=== PATIENT | male | born 1985 | race African-American/Black ===

== ENCOUNTER 2018-08-29 15:22 | Emergency (ER) | payer OTHER ==
[2018-08-29 15:28] VITALS: BP 132/89; PULSE 87; TEMP 98.2; BMI 22.8
--- NOTE | 2018-08-29 15:43 | PDOC ---
Suture Removal/Wound Check HPI - History of Present Illness Chief Complaint: Suture/Staple Removal(Here) Stated Complaint: LT SHOULDER PAIN/STITCHES REMOVAL Time Seen by Provider: 08/29/18 15:33 History Source: Yes: Patient Exam Limitations: Yes: No Limitations - Previous ED Treatment Type of procedure performed on last visit: Yes: Laceration Repair Tetanus Immunization: Yes: Up to Date - Onset of Previous Treatment Timing/Duration/Severity of Onset: reports: Prior to presentation Past History - Travel Traveled outside of the country in the last 30 days: No Close contact w/someone who was outside of country & ill: No - Past Medical History Allergies/Adverse Reactions: Allergies Allergy/AdvReac Type Severity Reaction Status Date / Time No Known Allergies Allergy Verified 09/27/13 19:59 Home Medications: Ambulatory Orders NK [No Known Home Medication] 08/29/18 COPD: No - Immunization History Immunization Up to Date: Yes - Suicide/Smoking/Psychosocial Hx Smoking History: Never smoked If you are a former smoker, when did you quit?: 5 years ago Hx Alcohol Use: No Drug/Substance Use Hx: Yes (MARIJUANA) Suture Removal/Wound Check PE - Physical Exam Laceration/Wound Check Symptoms: reports: None Current Severity Level: None Maximum Severity Level: None Location of Laceration/Wound: left: Head Pain Radiation: None *Review of Systems - Review of Systems Constitutional: No: Chills, Fever HEENTM: No: Ear Pain, Nose Congestion, Throat Swelling Respiratory: No: Shortness of Breath, Wheezing Cardiac (ROS): No: See HPI, Chest Pain, Lightheadedness : No: Burning Musculoskeletal: No: Back Pain Integumentary: Yes: Other (suture removal) *Physical Exam - Vital Signs Last Vital Signs Temp Pulse Resp BP Pulse Ox 98.2 F 87 17 132/89 99 08/29/18 15:26 08/29/18 15:26 08/29/18 15:26 08/29/18 15:26 08/29/18 15:26 - Physical Exam General Appearance: Yes: Nourished, Appropriately Dressed HEENT: positive: FIDENCIO, TMs Normal, Pharynx Normal, Other (7 sutures to left side of forehead, wound well approximated, no drainage) Respiratory/Chest: positive: Lungs Clear Cardiovascular: positive: Regular Rate, S1, S2 Moderate Sedation - Procedure Monitoring Vital Signs: Procedure Monitoring Vital Signs Temperature 98.2 F 08/29/18 15:26 Pulse Rate 87 08/29/18 15:26 Respiratory Rate 17 08/29/18 15:26 Blood Pressure 132/89 08/29/18 15:26 O2 Sat by Pulse Oximetry (%) 99 08/29/18 15:26 Medical Decision Making - Medical Decision Making 08/29/18 15:42 33 year old male here for suture removal from face area cleansed then 7 sutures removed pt tolerated well *DC/Admit/Observation/Transfer Diagnosis at time of Disposition: Visit for suture removal - Discharge Dispostion Disposition: HOME Condition at time of disposition: Good Decision to Admit order: No - Referrals - Patient Instructions Printed Discharge Instructions: DI for Suture Removal Additional Instructions: May wash face gently with soap and water Return for redness, drainage from wound - Post Discharge Activity Forms/Work/School Notes: Back to Work
== END 2018-08-29 15:43 | disposition home or self-care (01) ==
LOC: JERFT 15:22
DX: Z48.817 Encounter for surgical aftercare following surgery on the skin and subcutaneous tissue (principal); Z48.02 Encounter for removal of sutures
CPT/HCPCS: 99281-25